=== PATIENT | female | born 1955 | race Hispanic/Latino ===

== ENCOUNTER 2021-01-13 14:00 | Outpatient (RCR) | payer OTHER | END 2021-01-17 | LOC: PT 14:00 | PROVIDERS: ATTEND Specialist | DX: M76.61 Achilles tendinitis, right leg (principal) ==

== ENCOUNTER 2021-01-27 13:58 | Outpatient (RCR) | payer OTHER | END 2021-02-16 | LOC: PT 13:58 | PROVIDERS: ATTEND Specialist | DX: M65.28 Calcific tendinitis, other site (principal) ==